=== PATIENT | female | born 1960 | race Caucasian/White ===

== ENCOUNTER → 2017-06-19 | Outpatient (CLI) | payer MEDICAID ==
[~2017-06-19] MED LIST: DIAZEPAM 5 MG TABLET ONE
--- NOTE | 2017-06-19 16:27 | RADIOLOGY REPORT (SQ) ---
EXAM DESCRIPTION: MRI LUMBAR SPINE WITHOUT COMPLETED DATE/TIME: 06/19/2017 2:59 pm REASON FOR STUDY: OTHER INTERVERTEBRAL DISC DEGENERATION M51.36 OTHER INTERVERTEBRAL DISC DEGENERAT ION, LUMBAR REGION COMPARISON: None. TECHNIQUE: Sagittal and Axial imaging includes T1, T2, STIR and gradient echo sequences. Coronal T2/ HASTE imaging. LIMITATIONS: None. FINDINGS: VISUALIZED UPPER ABDOMEN: Mild ectasia of the infrarenal abdominal aorta, 2.6 x 2.7 cm in size. SEGMENTATION: No transitional anatomy. The lowest well-developed disc space is labeled L5-S1. ALIGNMENT: Anatomic. VERTEBRAE: Intact. BONE MARROW: Mild fatty vertebral body endplate changes at L2-3, L3-4, and L4-5. DISC SIGNAL: Decreased T2 weighted intervertebral disc signal at L2-3, and L4-5. POSTERIOR ELEMENTS: Generally intact. No pars defect evident. HARDWARE: None in the spine. CORD AND CONUS: Normal in size and signal intensity. Conus at the L1 level. SOFT TISSUES: No aortic aneurysm seen. No bulky retroperitoneal adenopathy or mass. No paraspinal mas s or fluid. T10-11: At the upper edge of the field of view. Mild bilateral facet hypertrophy. No central or fo raminal stenosis T11-12: No central or foraminal stenosis. T12-L1: No central or foraminal stenosis L1-L2: No central or foraminal stenosis. Mild bilateral facet hypertrophy L2-L3: No central or foraminal stenosis. Mild bilateral facet hypertrophy. L3-L4: Minimal left posterior disc bulging along the left paracentral and foraminal region with mild inferior left foraminal narrowing. No exiting L3 nerve root impingement. No significant central can al or right foraminal stenosis. L4-L5: Mild diffuse posterior disc bulging, moderate bilateral facet and ligament hypertrophy. No ce ntral canal narrowing. Mild bilateral inferior foraminal narrowing. No exiting L4 nerve root imping ement. L5-S1: No central or foraminal stenosis. Bulky right, moderate left facet arthropathy. SACRUM: Visualized upper sacrum intact. OTHER: No other significant findings. IMPRESSION: Multilevel facet arthropathy. Mild degenerative disc changes. No high-grade central or foraminal stenosis. Ectasia infrarenal abdominal aorta. Periodic ultrasound surveillance recommended. TECHNICAL DOCUMENTATION: JOB ID: [id number]- All Rights Reserved
== END ==
LOC: RAD 13:27
PROVIDERS: ATTEND Nurse Practitioner Psychiatric/Mental Health
DX: M51.36 Other intervertebral disc degeneration, lumbar region (principal)
CPT/HCPCS: 72148; J3490

== ENCOUNTER 2019-01-27 11:31 | Emergency (ER) | payer MEDICAID ==
[2019-01-27] MEDS ORDERED: ASPIRIN 81 MG TABLET, CHEWABLE PO ONE (11:59)
--- NOTE | 2019-01-27 12:02 | ER Document Report ---
ED Medical Screen (RME) - General Chief Complaint: Chest Pain Stated Complaint: CHEST PAIN/NUMBNESS Time Seen by Provider: 01/27/19 11:56 Primary Care Provider: FANTA AMBROSIO NP-C [Primary Care Provider] - Follow up as needed Mode of Arrival: Ambulatory Information source: Patient Notes: This 58-year-old female presents emergency department with complaints of left arm none chest pain shortness of breath back pain leg swelling upper abdominal pain for the past week. She went to [facility] and they sent her here. She complains of some nausea declines nausea medicine. Denies past medical history of cardiac disease or diabetes. Patient reports she smoked her whole life. EKG shows sinus rhythm no ST elevation no T wave inversion. Respiratory rate even unlabored. I have greeted and performed a rapid initial assessment of this patient. A comprehensive ED assessment and evaluation of the patient, analysis of test results and completion of the medical decision making process will be conducted by additional ED providers. Dictation of this chart was performed using voice recognition software; therefore, there may be some unintended grammatical e rrors. TRAVEL OUTSIDE OF THE [place] IN LAST 30 DAYS: No - Related Data Allergies/Adverse Reactions: hydrocodone Allergy (Verified 01/27/19 11:50) Past Medical History - Social History Chew tobacco use (# tins/day): No Frequency of alcohol use: None Drug Abuse: None Physical Exam - Vital signs Vitals: Temp Pulse Resp BP Pulse Ox 97.9 F 81 18 124/64 87 L 01/27/19 11:44 01/27/19 11:44 01/27/19 11:44 01/27/19 11:44 01/27/19 11:44 Course - Vital Signs Vital signs: Temp Pulse Resp BP Pulse Ox 97.9 F 81 18 124/64 95 01/27/19 11:44 01/27/19 11:44 01/27/19 11:58 01/27/19 11:44 01/27/19 11:58 Doctor's Discharge - Discharge Referrals: FANTA AMBROSIO NP-C [Primary Care Provider] - Follow up as needed
[2019-01-27 12:27] LABS: ABSOLUTE BASOPHILS # (AUTO) 0.1 10^3/uL (0.0-0.2); ABSOLUTE LYMPHOCYTES (AUTO) 2.5 10^3/uL (0.5-4.7); ABSOLUTE MONOCYTES (AUTO) 0.3 10^3/uL (0.1-1.4); BASOPHILS % (AUTO) 1.2 % (0-2); EOSINOPHILS % (AUTO) 0.5 % (0-6); HEMATOCRIT 41.6 % (36.0-47.0); HEMOGLOBIN 13.8 g/dL (12.0-15.5); MEAN CORPUSCULAR HEMOGLOBIN 28.2 pg (27.0-33.4); MEAN CORPUSCULAR HGB CONC 33.2 g/dL (32.0-36.0); MEAN CORPUSCULAR VOLUME 85 fl (80-97); MONOCYTES % (AUTO) 4.8 % (3-13); PLATELET COUNT 272 10^3/uL (150-450); RED BLOOD COUNT 4.89 10^6/uL (3.72-5.28); SEGMENTED NEUTROPHILS % (AUTO) 57.5 % (42-78); TOTAL CELLS COUNTED % (AUTO) 100 %; WHITE BLOOD COUNT 6.9 10^3/uL (4.0-10.5)
--- NOTE | 2019-01-27 12:35 | RADIOLOGY REPORT (SQ) ---
EXAM DESCRIPTION: CHEST 2 VIEWS COMPLETED DATE/TIME: 01/27/2019 12:19 pm REASON FOR STUDY: cp sob COMPARISON: None. EXAM PARAMETERS: NUMBER OF VIEWS: two views TECHNIQUE: Digital Frontal and Lateral radiographic views of the chest acquired. RADIATION DOSE: NA LIMITATIONS: none FINDINGS: LUNGS AND PLEURA: No consolidation, pleural effusion or pneumothorax. MEDIASTINUM AND HILAR STRUCTURES: No mediastinal or hilar contour abnormality. HEART AND VASCULAR STRUCTURES: The cardiac silhouette and pulmonary vasculature are within normal varghese its. BONES: No acute findings. HARDWARE: None in the chest. OTHER: ACDF hardware in the cervical spine. IMPRESSION: No acute cardiopulmonary process. TECHNICAL DOCUMENTATION: JOB ID: [id number] [employer]- All Rights Reserved Reading location - IP/workstation name: [email or web address]
[2019-01-27 12:40] LABS: ALBUMIN 4.3 g/dL (3.5-5.0); ALKALINE PHOSPHATASE 84 U/L (38-126); ANION GAP 6 (5-19); ASPARTATE AMINO TRANSFERASE 20 U/L (14-36); BILIRUBIN,DIRECT 0.1 mg/dL (0.0-0.4); BILIRUBIN,TOTAL 0.4 mg/dL (0.2-1.3); BLOOD UREA NITROGEN 9 mg/dL (7-20); CALCIUM 9.5 mg/dL (8.4-10.2); CARBON DIOXIDE 32 mmol/L (22-30); CHLORIDE 103 mmol/L (98-107); CREATINE KINASE 104 U/L (30-135); GLUCOSE 95 mg/dL (75-110); POTASSIUM 4.4 mmol/L (3.6-5.0); TOTAL PROTEIN 7.2 g/dL (6.3-8.2)
[2019-01-27 12:51] LABS: NT PRO BNP 68 pg/mL (5-900)
[2019-01-27 12:58] LABS: TROPONIN I < 0.012 ng/mL
--- NOTE | 2019-01-27 13:54 | ER Document Report ---
ED General - General Chief Complaint: Chest Pain Stated Complaint: CHEST PAIN/NUMBNESS Time Seen by Provider: 01/27/19 11:56 Primary Care Provider: FANTA AMBROSIO NP-C [Primary Care Provider] - Follow up as needed Mode of Arrival: Ambulatory Notes: Patient says she has been having difficulty breathing for the past week. She thought it was just her smoking, but decided to go to her primary doctor this morning at [facility]. They told her she had an abnormal EKG and her oxygen level was low at 85% and that she needed to come here to be evaluated. In triage, her O2 sat was 87% on room air. Patient says she is also been experiencing left arm weakness and tingling of her fingers and some arm pain for the past week, mostly at bedtime. She says that her lower extremities are both swelling over the past week. She is had some cough, but not really producing much phlegm. Nauseated but not vomiting. She has pains that began between her shoulder blades and come around to the front under her breasts. Has never been told she had a heart disease. Patient smokes a pack of cigarettes a day. TRAVEL OUTSIDE OF THE [place] IN LAST 30 DAYS: No - Related Data Allergies/Adverse Reactions: hydrocodone Allergy (Verified 01/27/19 11:50) Past Medical History - General Information source: Patient - Social History Smoking Status: Current Every Day Smoker Chew tobacco use (# tins/day): No Frequency of alcohol use: None Drug Abuse: None Family History: Reviewed & Not Pertinent Patient has suicidal ideation: No Patient has homicidal ideation: No - Past Medical History Cardiac Medical History: Denies: Hx Coronary Artery Disease, Hx Hypertension Endocrine Medical History: Reports: Hx Diabetes Mellitus Type 2 Psychiatric Medical History: Reports: Hx Depression Past Surgical History: Reports: Hx Hysterectomy, Hx Orthopedic Surgery - Neck fu cody Review of Systems - Review of Systems Notes: REVIEW OF SYSTEMS: CONSTITUTIONAL : Denies fever. EENT: Denies eye, ear, nose or mouth or throat pain or other symptoms. CARDIOVASCULAR: See HPI. RESPIRATORY: See HPI. Denies significant cough, chest congestion. GASTROINTESTINAL: Denies abdominal pain or nausea, vomiting, or diarrhea. GENITOURINARY: Denies difficulty or painful urinating, urinary frequency, blood in urine. MUSCULOSKELETAL: Denies neck pain. Says she has pain that begins between her shoulder blades in the back and come out under her breasts. Denies joint pain or swelling. Says that she has pain in her left arm and it feels weak at times and this is been going on for about a week. She notices numbness and tingling of her fingertips of the left hand. SKIN: Denies rash or skin lesions. NEUROLOGICAL: Denies LOC or altered mental status. Denies headache. Denies sensory loss or motor deficits. ALL OTHER SYSTEMS REVIEWED AND NEGATIVE. Physical Exam - Vital signs Vitals: Temp Pulse Resp BP Pulse Ox 97.9 F 81 18 124/64 87 L 01/27/19 11:44 01/27/19 11:44 01/27/19 11:44 01/27/19 11:44 01/27/19 11:44 Interpretation: Normal, Hypoxic - minimal for COPD patient Notes: PHYSICAL EXAMINATION: GENERAL: Well-appearing, in no acute distress. Vital signs are all normal except triage O2 sat was 87%. HEAD: Atraumatic, normocephalic. EYES: Pupils equal round and reactive to light, extraocular movements intact. ENT: oropharynx clear without exudates. Moist mucous membranes. NECK: Normal range of motion, supple. LUNGS: Breath sounds clear and equal bilaterally. No chest wall tenderness. No wheezes heard. O2 sat 95% on room air by me at bedside. HEART: Regular rate and rhythm without murmurs. ABDOMEN: Soft, nontender. No guarding or rebound. No masses. BACK: No tenderness throughout entire back. EXTREMITIES: Normal range of motion without pain. No swelling of either lower extremity. Negative Homans bilaterally. NEUROLOGICAL: Normal speech, normal gait. Normal sensory, motor, and reflex exams. Awake, alert, and oriented x3. Cranial nerves normal. PSYCH: Does appear as if she may be somewhat depressed. SKIN: Warm, dry, no rashes. Course - Re-evaluation Re-evalutation: 01/27/19 16:51 Patient's cardiac work-up is normal. Her symptoms do not sound like cardiac pain and her EKG is normal as are her cardiac markers. Her symptoms have been p resent for a week or more and it would be extremely unusual for this to be coronary/cardiac in origin having been present for a week and a half. Patients O2 sat was always above 90% on all of my checks on the patient during her stay. I encouraged the patient to stop smoking. I am going to give her a prescription for an albuterol inhaler to try to see if that may help some with her breathing. She is advised to start taking a baby aspirin daily. Return if she has new or worsening symptoms. - Vital Signs Vital signs: Temp Pulse Resp BP Pulse Ox 98.1 F 81 21 H 125/77 95 01/27/19 16:01 01/27/19 11:44 01/27/19 16:01 01/27/19 16:01 01/27/19 16:01 - Laboratory Result Diagrams: 01/27/19 12:12 01/27/19 12:12 Laboratory results interpreted by me: 01/27/19 12:12 Carbon Dioxide 32 H - Diagnostic Test Radiology reviewed: Image reviewed, Reports reviewed - CTA of the chest showed no pulmonary emboli. Patient has emphysema. She has several small nodules which are recommended for 12-month repeat follow-up. - EKG Interpretation by Me EKG shows normal: Sinus rhythm, [place] Rate: Normal Rhythm: NSR Discharge - Discharge Clinical Impression: COPD (chronic obstructive pulmonary disease), Chest wall pain Condition: Stable Disposition: HOME, SELF-CARE Additional Instructions: Chronic Obstructive Lung Disease You have chronic obstructive lung disease (COPD). The symptoms come from emphysema (damage to small airways, with trapping of air in large sacks in the lung) and chronic bronchitis (repeated infection and damage to larger airways). The cause is almost always cigarette smoking, although dust exposure, asthma, and infections contribute. You should avoid fumes, dust, and smoke (especially tobacco smoke). Your condition will flare from time to time. There is no cure, but the symptoms can be treated. Bronchodilators (asthma medicine) are often helpful. Antibiotics help when infection is present. When shortness of breath is severe, we may prescribe cortisone medication. If medicine doesn't help enough, we can arrange for you to have an oxygen tank at home. Notify your doctor at once if sputum becomes thick, foul, or bloody, if you develop a fever or chest pain, or if your shortness of breath worsens. SHORTNESS OF BREATH OR DYSPNEA: You were evaluated for shortness of breath, or dyspnea. Dyspnea has many causes, and some are more serious than others. Sometimes it's impossible to diagnose the cause of dyspnea with the tests that are available on an emergency basis. Based on our evaluation today, you do not need hospitalization now. We found no evidence of pneumonia, collapsed lung, blood clots in the lung, tumors, or heart failure. Causes of non-specific dyspnea can include asthma or bronchospasm, hyperventilation, emotional distress, heart disease, emphysema, fibrosis of the lung, and stiffness of the chest wall. In healthy individuals with a single episode, it's sometimes reasonable to do nothing but wait to see if the problem occurs again. Additional tests used to evaluate dyspnea can include cardiac stress testing, echocardiography, pulmonary function testing, CAT scan of the chest, bronchoscopy or pulmonary biopsy. Return if shortness of breath persists or worsens, or if you develop chest pain, fever, cough, confusion, or fainting. Aspirin Aspirin has been shown to have a beneficial effect on blood circulation by reducing the clotting effect of platelets in the blood. These beneficial effects can be achieved by taking just a single baby (62.5 mg) aspirin a day. It is recommended that any person over the age of forty take a single baby aspirin every day for heart and brain circulation, unless you are allergic to aspirin or have some significant bleeding disorder. It is strongly recommended that people who have proven cardiac or blood circulation disturbances should take a baby aspirin every day. INHALED BRONCHODILATORS: You have received treatment(s) of and/or prescription for an inhaled bronc hodilator -- a medication which stimulates the airways in the lung to dilate. This improves the flow of air in asthma, bronchitis, and emphysema. These medicines have some similarity to adrenaline, and can cause similar side effects: shakiness, racing heart, and a sense of nervousness. These side effects decrease with time. Contact your doctor if these side effects are severe. Do not over-use the medicine. Too-frequent use of the inhaler may make it ineffective. Call your doctor if the inhaler is not controlling your symptoms at the prescribed doses. SMOKING: If you smoke, you should stop smoking. The tar and chemicals in cigarette smoke are harmful. Smoking has been shown to cause: emphysema chronic bronchitis lung cancer mouth and throat cancer stomach and pancreas cancer premature aging defects In addition, smoking increases ear and lung infections in children of smokers. FOLLOW-UP CARE: If you have been referred to a physician for follow-up care, call the physicians office for an appointment as you were instructed or within the next two days. If you experience worsening or a significant change in your symptoms, notify the physician immediately or return to the Emergency Department at any time for re-evaluation. Your work-up had mostly normal/negative results. We did find several small nodules in your CT scan of your lungs and chest. It is recommended that you have a repeat CT scan in 1 year to be sure that these nodules have not changed in any way. Return if you have new or worsening symptoms. Prescriptions: Albuterol Sulfate [Proair HFA Inhalation Aerosol 8.5 gm MDI] 2 puff IH Q4H PRN #1 mdi PRN Reason: Referrals: FANTA AMBROSIO, JEVON-C [Primary Care Provider] - Follow up as needed
--- NOTE | 2019-01-27 14:47 | RADIOLOGY REPORT (SQ) ---
EXAM DESCRIPTION: CTA CHEST COMPLETED DATE/TIME: 01/27/2019 2:33 pm REASON FOR STUDY: Difficulty breathing, cough, chest pain, smoker COMPARISON: None. TECHNIQUE: CT scan of the chest performed using helical scanning technique with dynamic intravenous contrast injection. Images reviewed with lung, soft tissue and bone windows. Reconstructed coronal and sagittal MPR images reviewed. Additional 3 dimensional post-processing performed to develop Maximal Intensity Projection images ([place] P). All images stored on PACS. All CT scanners at this facility use dose modulation, iterative reconstruction, and/or weight based d osing when appropriate to reduce radiation dose to as low as reasonably achievable (ALARA). [facility]: Dose Right [facility]: CareDose [facility]: Dose Right [facility]: Teradose 4D [facility]: MashON CONTRAST TYPE AND DOSE: contrast/concentration: Isovue 350.00 mg/ml; Total Contrast Delivered: 56.0 ml; Total Saline Delivered: 80.0 ml Contrast bolus optimized for the pulmonary arteries. Not diagnostic for the aorta. RENAL FUNCTION: GFR > 60. RADIATION DOSE: CT Rad equipment meets quality standard of care and radiation dose reduction techniq ues were employed. CTDIvol: 9.9 - 14.5 mGy. DLP: 532 mGy-cm. . LIMITATIONS: None. FINDINGS: LUNGS AND PLEURA: No masses, infiltrates, or pneumothorax. There are small bilateral pulm onary nodules, for example a 4 mm nodule in the left upper lobe (series 3, image 63) and a 5 mm pulmo nary nodule of the right lower lobe (series 3, image 74). Mild predominantly paraseptal emphysema. No pleural effusions or pleural calcifications. AORTA AND GREAT VESSELS: No aneurysm. Contrast bolus not optimized for the aorta. HEART: No pericardial effusion. No significant coronary artery calcifications. PULMONARY ARTERIES: No emboli visualized in the main pulmonary arteries or the segmental branches. HILAR AND MEDIASTINAL STRUCTURES: No identified masses or abnormal nodes. HARDWARE: None in the chest. UPPER ABDOMEN: Severe mixed calcific atherosclerosis of the abdominal aorta. THYROID AND OTHER SOFT TISSUES: No masses. No adenopathy. BONES: No acute or significant finding. 3D MIPS: Confirm above findings. OTHER: No other significant finding. IMPRESSION: 1. Negative examination for pulmonary embolism. 2. Mild emphysema. 3. There are small bilateral incidental pulmonary nodules, for example a 4 mm nodule in the left uppe r lobe (series 3, image 63) and a 5 mm pulmonary nodule of the right lower lobe (series 3, image 74). CT follow-up of these nodules is optional at 12 months in the setting of high risk factors for lung cancer such as cigarette smoking. COMMENT: Quality ID # [id number]: Final reports with documentation of one or more dose reduction techniques (e.g., Automated exposure control, adjustment of the mA and/or kV according to patient size, use of iterative reconstruction technique) TECHNICAL DOCUMENTATION: JOB ID: [id number] [employer]- All Rights Reserved Reading location - IP/workstation name: [email or web address]
[2019-01-27 16:09] VITALS: BP 125/77
[2019-01-27 16:09] LABS: APPEARANCE,URINE CLEAR; BILIRUBIN,URINE NEGATIVE (NEGATIVE); COLOR,URINE YELLOW; GLUCOSE, URINE NEGATIVE (NEGATIVE); KETONES,URINE NEGATIVE (NEGATIVE); LEUKOCYTE ESTERASE,URINE NEGATIVE (NEGATIVE); NITRITE,URINE NEGATIVE (NEGATIVE); PROTEIN,URINE NEGATIVE (NEGATIVE); UROBILINOGEN,URINE NEGATIVE mg/dL (<2.0)
[2019-01-27 16:10] LABS: URINE SPECIFIC GRAVITY > 1.060
--- NOTE | 2019-01-27 22:19 | EKG REPORT ---
SEVERITY:- BORDERLINE ECG - SINUS RHYTHM BORDERLINE T ABNORMALITIES, ANTERIOR LEADS : Confirmed by: Jennifer Fontenot MD 27-Jan-2019 22:18:36
== END 2019-01-27 16:35 | disposition home or self-care (01) ==
LOC: ER 11:31
DX: J44.9 Chronic obstructive pulmonary disease, unspecified (principal); R07.89 Other chest pain; R20.0 Anesthesia of skin; M62.81 Muscle weakness (generalized); R05 Cough; R11.0 Nausea
CPT/HCPCS: 36415; 71046; 71275; 80053; 81001; 82550; 83690; 83880; 84484; 85025; 93005; 93010

== ENCOUNTER → 2019-03-30 | Outpatient (CLI) | payer MEDICAID ==
--- NOTE | 2019-03-30 10:48 | RADIOLOGY REPORT (SQ) ---
EXAM DESCRIPTION: CT SOFT TISSUE NECK COMBO COMPLETED DATE/TIME: 03/30/2019 8:40 am REASON FOR STUDY: PAROTID MASS K11.8 OTHER DISEASES OF SALIVARY GLANDS COMPARISON: CT of the chest with contrast from 01/27/2019. TECHNIQUE: Post IV contrasted scanning from skull base through lung apices with review of bone, soft tissue and lung windows. Reconstructed coronal and sagittal MPR images reviewed. All images stored on PACS. All CT scanners at this facility use dose modulation, iterative reconstruction, and/or weight based d osing when appropriate to reduce radiation dose to as low as reasonably achievable (ALARA). [facility]: Dose Right [facility]: CareDose [facility]: Dose Right [facility]: Teradose 4D [facility]: English Helper CONTRAST TYPE AND DOSE: Contrast/concentration: Isovue 350.00 mg/ml; Total Contrast Delivered: 75.0 ml; Total Saline Delivered: 55.0 ml RENAL FUNCTION: Creatinine 0.8 milligrams/deciliter RADIATION DOSE: DLP 1413.84 mGy cm LIMITATIONS: None. FINDINGS: SKULL BASE: The left vertebral artery is dominant ; the intracranial segment of the right vertebral artery is hypoplastic. There is no abnormality of the imaged intracranial structures. The orbits and globes are normal. MAJOR SALIVARY GLANDS: There is a solid ovoid 10 x 10 mm mass within posterior aspect of the superfic ial lobe of the right parotid gland that has smooth margins, is homogeneously enhancing and contains no calcifications. There is no other parotid mass. The submandibular glands are normal in appearanc e. LYMPHADENOPATHY: There is a prominent right level IIa lymph node that measures 6 mm in short axis parvez meter. There is no enlarged cervical or supraclavicular adenopathy. MUCOSAL MASSES OR ASYMMETRY: No mucosal masses or asymmetry. LARYNX/CORDS: No abnormal findings. VASCULAR STRUCTURES: The major vessels are patent. LUNG APICES: Clear. BONES: Status post ACDF and anterior fusion at C5-C6. The hardware is intact. There is no subsidenc e of the intervertebral disc prosthesis. THYROID: Homogeneous without a discrete mass. PARANASAL SINUSES: Clear. OTHER: No other finding. IMPRESSION: Solid homogeneously enhancing 10 x 10 mm mass within the posterior aspect of the superfi cial lobe of the right parotid gland. The favored differential considerations are a parotid benign m ixed tumor and a Warthin tumor. TECHNICAL DOCUMENTATION: JOB ID: [id number] Quality ID # [id number]: Final reports with documentation of one or more dose reduction techniques (e.g., Au tomated exposure control, adjustment of the mA and/or kV according to patient size, use of iterative reconstruction technique) 2010 [employer]- All Rights Reserved Reading location - IP/workstation name: [email or web address]
== END ==
LOC: RAD 08:16
PROVIDERS: ATTEND Otolaryngology
DX: K11.8 Other diseases of salivary glands (principal)
CPT/HCPCS: 70492; 82565

== ENCOUNTER 2019-07-07 10:56 | Day surgery (SDC) | payer MEDICAID ==
[~2019-07-07 10:56] MED LIST changes: +CEFAZOLIN SODIUM 2 GM in DEXTROSE 5%-WATER 100 ML IV PRN; +DEXAMETHASONE SOD PHOSPHATE INJ 4 MG/1 ML VIAL ONE; -DIAZEPAM 5 MG TABLET ONE; +GLYCOPYRROLATE 1 MG/5 ML VIAL ONE; +LACTATED RINGERS 1000 ML IV PRN; +LIDOCAINE 0.5% INJ-PF (5 MG/ML) 50 ML SDV SUBCUT PRN; +LIDOCAINE 2% INJ-PF (20 MG/ML) 2 ML AMPUL ONE; +ONDANSETRON HCL INJ/PF 4 MG/2 ML SDV ONE; +PHENYLEPHRINE HCL INJ/PF 10 MG/1 ML SDV ONE; +SUCCINYLCHOLINE CHLORIDE INJ 200 MG/10 ML VIAL ONE
[2019-07-07] MEDS ORDERED: FENTANYL CITRATE INJ/PF 250 MCG/5 ML AMPULE ONE (12:23)
[2019-07-07] MEDS ORDERED: MIDAZOLAM 2 MG/2 ML INJ ONE (12:24)
[2019-07-07] MEDS ORDERED: PROPOFOL INJ 200 MG/20 ML VIAL IV ONE (12:24)
[2019-07-07] MEDS ORDERED: MEPERIDINE HCL/PF INJ 25 MG/1 ML DISP.SYRIN IV PRN (13:42)
[2019-07-07] MEDS ORDERED: FENTANYL CITRATE INJ/PF 100 MCG/2 ML AMPUL IV PRN ×3 (13:42)
[2019-07-07] MEDS ORDERED: DIPHENHYDRAMINE HCL 50 MG/ML VIAL IV PRN (13:42)
[2019-07-07] MEDS ORDERED: PROMETHAZINE HCL INJ 25 MG/1 ML VIAL IV PRN ×2 (13:42)
[2019-07-07] MEDS ORDERED: OXYMETAZOLINE HCL 0.05% NASAL SPRAY 15 ML BOTTLE ONE (14:35)
[2019-07-07] MEDS ORDERED: LIDOCAINE 2%/EPINEPHRINE INJ 1.7 ML CARTRIDGE ONE (14:35)
[2019-07-07] MEDS ORDERED: ACETAMINOPHEN 1,000 MG/100 ML RTUPB IV ONE (16:28)
--- NOTE | 2019-07-07 16:54 | Operative Report ---
[facility]ative [facility] Operative Report: Date: 07 July 2019 History: 58-year-old female with a right parotid mass. CT scan demonstrated a mass within the superficial lobe of the right parotid gland. 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 Patient does have a history of having a left parotidectomy for a Warthin's tumor. Presents today for a right parotidectomy. Informed consent was obtained from the patient. Preoperative Diagnosis: 1. Right parotid Mass, Cytopatholoy consistent with Warthin's tumor Postoperative Diagnosis: Same as above Procedure: 1. Right superficial parotidectomy 2. Use of nerve integrity monitoring Surgeon: Keagan Ortiz MD, FACS, FCCP [place] Sawyer surgeon: Brady Jiménez DO Anesthesia: ERIKA Description of the procedure: After receiving informed consent from the patient, the patient was taken to the operating room and placed supine on the operating room table. After successful induction and intubation by anesthesia. Shoulder roll was placed to extend the neck. The head was turned towards the left side, to expose the right surgical field. The modified Amrit incision was marked with a marking pen and then infiltrated with 2% Xylocaine with 100,000 epinephrine. The nerve integrity monitoring electrodes were placed to monitor the following branches of the facial nerve: Temporal, zygomatic, buccal and marginal mandibular. The nerve integrity monitor was calibrated and found to be functioning normally. The patient was then prepped and draped in a sterile fashion. 15 blade was then used to incise the skin down to the parotid fascia superiorly and the platysma inferiorly. The platysma muscle was then incised with a 15 blade. Skin flaps were then elevated in a supra SMAS and subplatysmal fashion. The skin flaps were extended out to the masseter muscle. Dissection began superiorly carefully the parotid gland from the surrounding tissue. Inferiorly the anterior border of the sternocleidomastoid muscle was identified and the parotid gland was carefully dissected off of the sternocleidomastoid muscle. It should be noted that the greater auricular nerve was identified and preserved. As the dissection progressed the tragal pointer was identified superiorly and inferiorly the posterior belly of digastric was identified. The tympanomastoid suture line was identified and the dissection at this point was focused on finding the main trunk of the facial nerve. The main trunk of the facial nerve was identified and was stimulated using the Prass probe and all branches were found to be intact. A Bhakta dissector was then used to follow the main trunk of the facial nerve to the pes ansurinas. This was identified and then dissection began the parotid gland from the facial nerve starting with the most inferior branch which was identified and preserved. The mass was noted to be in the tail of the parotid gland. Dissection proceeded from inferior to superior aspect until the tumor was removed with an appropriate margin. After the dissection was completed and the tumor removed the Prass probe stimulated the main trunk and all branches were found to be intact. The wound was then irrigated with normal saline and a [place] drain was placed. The wound was then closed in layers. Superiorly the subcutaneous tissue was closed with 5-0 Monocryl and the skin closed with 7-0 Prolene. Inferiorly the platysma and subcutaneous tissues was closed with 4-0 Monocryl. Dermabond, Mastisol and Steri-Strips were applied to the inferior portion of the wound. Bacitracin applied to the superior portion of the wound. A pressure dressing was then applied. Patient tolerated the procedure well without any complications. Estimated blood loss: 15 mL Fluids: 1500 mL The patient was then given back to anesthesia who successfully extubated the patient without any complications. The patient was transported to the postanesthesia care unit in stable condition with spontaneous respirations. Examination in the PACU revealed the facial nerve was intact and functioning normally on the right. Grade 1 out of 6.
[2019-07-07] MEDS ORDERED: IPRATROPIUM/ALBUTEROL 0.5-2.5 MG/3 ML AMPUL NEB ONE (16:59)
[2019-07-07] MEDS ORDERED: OXYCODONE-ACETAMINOPHEN 5-325 MG TABLET ONE (17:28)
[2019-07-07] MEDS ORDERED: ONDANSETRON HCL INJ/PF 4 MG/2 ML SDV IV PRN (18:18)
[2019-07-07] MEDS ORDERED: OXYCODONE-ACETAMINOPHEN 5-325 MG TABLET PO PRN (18:18)
[2019-07-07 18:50] VITALS: BP 117/78
== END 2019-07-07 18:50 | disposition home or self-care (01) ==
LOC: OROUT 10:56
PROVIDERS: ATTEND Otolaryngology
DX: D11.0 Benign neoplasm of parotid gland (principal); J44.9 Chronic obstructive pulmonary disease, unspecified; E11.9 Type 2 diabetes mellitus without complications; Z79.899 Other long term (current) drug therapy; J43.9 Emphysema, unspecified; E66.01 Morbid (severe) obesity due to excess calories; Z79.51 Long term (current) use of inhaled steroids
CPT/HCPCS: 82962; 88307 ×2; 00100; 42410; J2250; J3490 ×4; J0690; J1100; J3010; J2370; J0330; J2405; J7060; J2704; J7620; J0131; 100

== ENCOUNTER 2019-08-24 14:18 | Emergency (ER) | payer MEDICAID ==
[2019-08-24 14:24] VITALS: BP 128/69
--- NOTE | 2019-08-24 14:43 | ER Document Report ---
HPI - HPI Time Seen by Provider: 08/24/19 14:38 Pain Level: 4 Notes: CHIEF COMPLAINT: Left shoulder injury from fall HPI: 58-year-old female presenting to the emergency department complaining of injury sustained in a fall yesterday. Fell down 1 step coming off of a porch, struck her right knee on the ground but that also landed on the left shoulder. Patient denies knee or hip discomfort, complains of slight abrasion over the anterior right knee but states she has been able to weight-bear without difficulty. Patient states that she has had progressive difficulty lifting the arm at the left shoulder secondary to pain. Denies wrist or elbow discomfort. Denies head injury. Denies hip pain. ROS: See HPI - all other systems were reviewed and are otherwise negative Constitutional: no fever Eyes: no drainage, no blurred vision ENT: no runny nose, no sore throat Cardiovascular: no chest pain Resp: no SOB, no cough GI: no vomiting, no diarrhea, no abdominal pain : no dysuria Integumentary: no rash Allergy: no hives Musculoskeletal: + extremity pain or swelling Neurological: no numbness/tingling, no weakness MEDICATIONS: I agree with the patient medications as charted by the RN. ALLERGIES: I agree with the allergies as charted by the RN. PAST MEDICAL HISTORY/PAST SURGICAL HISTORY: Reviewed and agree as charted by RN. SOCIAL HISTORY: Reviewed and agree as charted by RN. FAMILY HISTORY: No significant familial comorbid conditions directly related to patient complaint EXAM: Reviewed vital signs as charted by RN. CONSTITUTIONAL: Alert and oriented and responds appropriately to questions. Well-appearing; well-nourished, moderate distress secondary to pain HEAD: Normocephalic; atraumatic EYES: PERRL; Conjunctivae clear, sclerae non-icteric ENT: normal nose; no rhinorrhea; moist mucous membranes; pharynx without lesions noted, no uvula edema or deviation, no tonsillar hypertrophy, phonation normal NECK: Supple without meningismus; non-tender; no cervical lymphadenopathy, no masses CARD: RRR; no murmurs, no clicks, no rubs, no gallops; symmetric distal pulses RESP: Normal chest excursion without splinting or tachypnea; breath sounds clear and equal bilaterally; no wheezes, no rhonchi, no rales, pulse oximetry 93% on room air not hypoxic ABD/GI: Normal bowel sounds; non-distended; soft, non-tender, no rebound, no guarding; no palpable organomegaly or masses. BACK: The back appears normal and is non-tender to palpation, there is no CVA tenderness EXT: Abrasion over the anterior right knee is noted, no tenderness on palpation of the right knee no effusion. Able to fully flex and extend the right leg at the knee without difficulty. Able to weight-bear without difficulty. No hip pain on palpation or range of motion. There is no tenderness in the left wrist, left elbow on palpation or range of motion. Patient with significant discomfort over the anterior left shoulder with passive or active range of motion of the left arm at the shoulder. Does not appear to have a clinical dislocation SKIN: Normal color for age and race; warm; dry; good turgor; no acute lesions noted NEURO: Moves all extremities equally; sensory function intact PSYCH: The patient's mood and manner are appropriate. Grooming and personal hygiene are appropriate. MDM: 58-year-old female with injury to the left shoulder from a fall. Will obtain x-ray for fracture - REPRODUCTIVE Reproductive: DENIES: : - MUSCULOSKELETAL Musculoskeletal: REPORTS: Extremity pain - left shoulder and right knee Past Medical History - Social History Smoking Status: Current Every Day Smoker Chew tobacco use (# tins/day): No Frequency of alcohol use: None Drug Abuse: None Family History: Reviewed & Not Pertinent Patient has suicidal ideation: No Patient has homicidal ideation: No - Past Medical History Cardiac Medical History: Denies: Hx Coronary Artery Disease, Hx Heart Attack, Hx Hypertension Pulmonary Medical History: Reports: Hx COPD - STAGE 4 Denies: Hx Asthma, Hx Bronchitis, Hx Pneumonia Neurological Medical History: Denies: Hx Cerebrovascular Accident, Hx Seizures Endocrine Medical History: Reports: Hx Diabetes Mellitus Type 2 Musculoskeletal Medical History: Reports Hx Arthritis - GENERALIZED Psychiatric Medical History: Reports: Hx Depression Past Surgical History: Reports: Hx Hysterectomy, Hx Orthopedic Surgery - Neck fusion - Immunizations Hx Diphtheria, Pertussis, Tetanus Vaccination: Yes Hx Pneumococcal Vaccination: 04/18/19 Vertical Provider Document - INFECTION CONTROL TRAVEL OUTSIDE OF THE [place] IN LAST 30 DAYS: No Course - Re-evaluation Re-evalutation: 08/24/19 15:31 X-ray does not show evidence of fracture I suspect a likely rotator cuff injury. Will sling for comfort, patient states she did take Percocet for pain without balance issues will refer to orthopedics for follow-up - Vital Signs Vital signs: Temp Pulse Resp BP Pulse Ox 98.9 F 87 20 128/69 H 93 08/24/19 14:22 08/24/19 14:22 08/24/19 14:22 08/24/19 14:22 08/24/19 14:22 Discharge - Discharge Clinical Impression: Fall Qualifiers: Encounter type: initial encounter Qualified Code(s): W19.XXXA - Unspecified fall, initial encounter Injury of shoulder, left Qualifiers: Encounter type: initial encounter Qualified Code(s): S49.92XA - Unspecified injury of left shoulder and upper arm, initial encounter Condition: Stable Disposition: HOME, SELF-CARE Instructions: Rotator Cuff Injury ([facility]) Additional Instructions: 1. ice the shoulder twice daily for 10 minutes each time 2. use the sling for comfort during the day only for 2-3 days. Do not sleep in the sling 3. take the arm out of the sling 3-4 times daily and perform gentle range of motion exercises to maintain flexibility in the shoulder 4. medications for pain as directed, no driving if taking narcotics watch for balance issues Prescriptions: Oxycodone HCl/Acetaminophen [Percocet 5-325 mg Tablet] 1 tab PO Q4H PRN #15 tab PRN Reason: Diclofenac Sodium [Voltaren 50 Mg Tablet.Dr] 50 mg PO BID #20 tablet. Referrals: SWATI MCHUGH FNP-C [Primary Care Provider] - Follow up as needed ROXY MERCEDES MD [ACTIVE STAFF] - Follow up as needed
--- NOTE | 2019-08-24 14:59 | RADIOLOGY REPORT (SQ) ---
EXAM DESCRIPTION: SHOULDER LEFT 2 OR MORE VIEWS IMAGES COMPLETED DATE/TIME: 08/24/2019 2:49 pm REASON FOR STUDY: fall COMPARISON: None. NUMBER OF VIEWS: Three views. TECHNIQUE: Internal rotation, external rotation, and Y view images acquired of the left shoulder. LIMITATIONS: None. FINDINGS: MINERALIZATION: Normal. BONES: No acute fracture. No worrisome bone lesions. JOINTS: No dislocation. VISUALIZED LUNGS AND RIBS: No pneumothorax. No rib fracture. SOFT TISSUES: Calcification at the insertion site of the supraspinatus tendon. OTHER: No other significant finding. IMPRESSION: Calcific tendinitis involving the supraspinatus tendon. No other significant findings. TECHNICAL DOCUMENTATION: JOB ID: [id number] 2010 [employer]- All Rights Reserved Reading location - IP/workstation name: [email or web address]
== END 2019-08-24 15:57 | disposition home or self-care (01) ==
LOC: ER 14:18
DX: S49.92XA Unspecified injury of left shoulder and upper arm, initial encounter (principal); S80.211A Abrasion, right knee, initial encounter; W10.8XXA Fall (on) (from) other stairs and steps, initial encounter; F17.200 Nicotine dependence, unspecified, uncomplicated; J44.9 Chronic obstructive pulmonary disease, unspecified; E11.9 Type 2 diabetes mellitus without complications
CPT/HCPCS: 99283

== ENCOUNTER → 2020-01-31 | Outpatient (CLI) | payer MEDICAID ==
--- NOTE | 2020-01-31 13:13 | RADIOLOGY REPORT (SQ) ---
EXAM DESCRIPTION: CT LUNG CANCER SCREENING IMAGES COMPLETED DATE/TIME: 01/31/2020 10:05 am REASON FOR STUDY: Z87.891 PERSONAL HISTORY OF NICOTINE DEPENDENCE Z87.891 PERSONAL HISTORY OF NICOT INE DEPENDENCE Has the patient had a Chest CT scan within the past year? N Was the patient offered tobacco cessation counseling? Y Was the patient engaged in shared decision making for this test? Y Does the patient have signs or symptoms of Lung Cancer? N Is the patient a smoker? Y How many pack years? 45 How many years since quitting smoking? 0 Patients age: 59 COMPARISON: CT chest 01/27/2019. TECHNIQUE: Low Dose CT scan performed of the chest without intravenous contrast for purposes of scre ening for lung cancer. Images reviewed with lung, soft tissue and bone windows. Reconstructed coron al and sagittal MPR images reviewed. All images stored on PACS. All CT scanners at this facility use dose modulation, iterative reconstruction, and/or weight based d osing when appropriate to reduce radiation dose to as low as reasonably achievable (ALARA). [facility]: Dose Right [facility]: CareDose [facility]: Dose Right [facility]: Teradose 4D [facility]: Smart FlameStower RADIATION DOSE: CT Rad equipment meets quality standard of care and radiation dose reduction techniq ues were employed. CTDIvol: 2.0 mGy. DLP: 82 mGy-cm. mGy. . LIMITATIONS: No technical limitations. FINDINGS: LUNG NODULES: Description: Solid Size: 5.7 mm (series 3, image 141). Findings stable co mpared to exam dated 01/27/2019. Description: Solid. Size: 4.0 mm (series 3, image 127). Findings stable compared to exam dated 03/2019. REMAINING LUNGS AND PLEURA: Mild linear right basilar opacities, likely scarring or atelectatic ch margarito. No pleural effusion or pleural calcifications. No pneumothorax. HILAR AND MEDIASTINAL STRUCTURES: No identified masses. No abnormal nodes. HEART AND VASCULAR STRUCTURES: No aortic aneurysm. No pericardial effusion. No cardiac devices. CORONARY ARTERY CALCIFICATIONS: No significant calcifications. UPPER ABDOMEN: No acute findings. Vascular calcifications. THYROID AND OTHER SOFT TISSUES: No masses. No adenopathy. BONES: No significant finding. OTHER: No other significant findings. IMPRESSION: 1. Stable sub 6 mm pulmonary nodules compared to exam dated 01/27/2019 as detailed above . Follow-up as below. 2. No other evidence of acute intrathoracic findings. LUNGRADS: LUNGRADS: 2 BENIGN APPEARANCE OR BEHAVIOR. NODULES WITH A VERY LOW LIKELIHOOD OF BECOMIN G A CLINICALLY ACTIVE CANCER DUE TO SIZE OR LACK OF GROWTH. MODIFIER: NONE. RECOMMENDATION: Continue annual screening with LDCT in 12 months. COMMENT: CRITERIA: Solid nodule(s): < 6 mm; new < 4 mm. Part solid nodule(s): < 6 mm total diameter on baseline screening. Non solid nodule(s) (GGN): < 20 mm OR ? 20 and unchanged or slowly growing. Category 3 or 4 nodules unchanged for ? 3 months. TECHNICAL DOCUMENTATION: JOB ID: [id number] Quality ID # [id number]: Final reports with documentation of one or more dose reduction techniques (e.g., Au tomated exposure control, adjustment of the mA and/or kV according to patient size, use of iterative reconstruction technique) 2010 [facility] [place] Radiology Reading location - IP/workstation name: [employer]-[facility]-
== END ==
LOC: RAD 09:51
PROVIDERS: ATTEND Registered Nurse
DX: Z12.2 Encounter for screening for malignant neoplasm of respiratory organs (principal); R91.8 Other nonspecific abnormal finding of lung field; Z87.891 Personal history of nicotine dependence
CPT/HCPCS: G0297